=== PATIENT | male | born 1970 | race Caucasian/White ===

== ENCOUNTER 2021-05-11 07:25 | Emergency (ER) | payer OTHER ==
[2021-05-11] MEDS ORDERED: Fluorescein Opthalmic Strip ONE (07:36)
[2021-05-11] MEDS ORDERED: Tetracaine 0.5% PF 4 ML BOT ONE (07:36)
[2021-05-11] MEDS ORDERED: Morphine 4 MG/ML VIAL ONE (07:48)
[2021-05-11] MEDS ORDERED: Ondansetron PF 4 MG/2 ML Vial ONE (07:48)
[2021-05-11 08:04] LABS: #Monocytes 0.4 thou/uL (0.11-0.59); #Neutrophils 7.1 thou/uL (1.40-6.50); %Basophils 0.4 % (0.0-1.0); %Eosinophils 0.1 % (0.0-10.0); %Lymphocytes 11.8 % (21.0-51.0); %Monocytes 4.3 % (0.0-10.0); %Neutrophils 83.5 % (42.0-75.0); Hemoglobin 15.7 g/dL (14.0-18.0); Mean Corpuscular HGB CONC 33.4 g/dL (32.0-36.0); Mean Corpuscular Hemoglobin 30.7 pg (27.0-31.0); Mean Corpuscular Volume 91.8 fL (78.0-98.0); Mean Platelet Volume 5.8 fL (7.4-10.4); Platelet Count 367 thou/uL (130-400); RBC Distribution Width 11.4 % (11.5-14.5); Red Blood Cell (RBC) Count 5.12 mill/uL (4.70-6.10); White Blood Cell (WBC) Count 8.4 thou/uL (4.8-10.8)
[2021-05-11 08:16] LABS: ALT (SGPT) 10 U/L (8-55); AST (SGOT) 26 U/L (5-34); Albumin 4.8 g/dL (3.5-5.0); Alkaline Phosphatase 58 U/L (40-110); Anion Gap 14 mmol/L (10-20); BUN (Urea Nitrogen) 11 mg/dL (8.9-20.6); Bilirubin, Total 0.6 mg/dL (0.2-1.2); Calc. Creatinine Clearance 0 mL/min (70-130); Calcium 9.7 mg/dL (7.8-10.44); Carbon Dioxide 28 mmol/L (22-29); Chloride 97 mmol/L (98-107); Glucose 117 mg/dL (70-105); Potassium 4.3 mmol/L (3.5-5.1); Protein, Total 7.8 g/dL (6.0-8.3); Sodium 135 mmol/L (136-145)
[2021-05-11] MEDS ORDERED: Clindamycin/D5W 900 mg/50 ml Premix Bag ONE (08:48)
[2021-05-11] MEDS ORDERED: Clindamycin/D5W 600 mg/50 ml Premix Bag ONE (08:48)
[2021-05-11] MEDS ORDERED: Cefepime 2 GM VIAL ONE (08:48)
[2021-05-11] MEDS ORDERED: Sodium Chloride 0.9% 100 ML ONE (08:49)
[2021-05-11] MEDS ORDERED: Morphine 2 MG/ML VIAL ONE (08:51)
[2021-05-11] MEDS ORDERED: Ciprofloxacin 500 MG TAB ONE (10:27)
[2021-05-11] MEDS ORDERED: Iopamidol 370 76% 100 ML VIAL ONE (12:04)
== END 2021-05-11 10:49 | disposition home or self-care (01) ==
LOC: MADERS 07:25
DX: H44.002 Unspecified purulent endophthalmitis, left eye (principal); B96.89 Other specified bacterial agents as the cause of diseases classified elsewhere; F17.210 Nicotine dependence, cigarettes, uncomplicated
CPT/HCPCS: 70450; 70487; 80053; 83605; 85025; 87040; 96365; 96367; 96375; 96376; J0692; J2270; J2405; J3490; Q9967

== ENCOUNTER 2021-07-05 21:22 | Emergency (ER) | payer OTHER ==
[2021-07-05] MEDS ORDERED: Fluorescein Opthalmic Strip ONE (21:30)
[2021-07-05] MEDS ORDERED: Tetracaine 0.5% PF 4 ML BOT ONE (21:30)
[2021-07-05] MEDS ORDERED: Ciprofloxacin 500 MG TAB ONE (21:47)
[2021-07-05] MEDS ORDERED: Ondansetron ODT 4 MG TAB ONE (21:47)
[2021-07-05] MEDS ORDERED: Clindamycin 150 MG CAP ONE (21:47)
[2021-07-05] MEDS ORDERED: cefTRIAXone\\ROCEPHIN 1 GM VIAL ONE (21:47)
[2021-07-05] MEDS ORDERED: Ketorolac Tromethamine 30 MG/ML VIAL ONE (21:47)
[2021-07-05 21:58] LABS: #Basophils 0.1 thou/uL (0.0-0.2); #Eosinphils 0.1 thou/uL (0.0-0.7); #Lymphocytes 2.9 thou/uL (1.20-3.40); #Monocytes 0.7 thou/uL (0.11-0.59); #Neutrophils 4.9 thou/uL (1.40-6.50); %Basophils 0.9 % (0.0-1.0); %Eosinophils 1.3 % (0.0-10.0); %Lymphocytes 33.6 % (21.0-51.0); %Monocytes 7.5 % (0.0-10.0); %Neutrophils 56.7 % (42.0-75.0); Hemoglobin 13.1 g/dL (14.0-18.0); Mean Corpuscular HGB CONC 32.1 g/dL (32.0-36.0); Mean Corpuscular Hemoglobin 30.1 pg (27.0-31.0); Mean Corpuscular Volume 93.8 fL (78.0-98.0); Mean Platelet Volume 5.3 fL (7.4-10.4); Platelet Count 337 thou/uL (130-400); RBC Distribution Width 12.2 % (11.5-14.5); Red Blood Cell (RBC) Count 4.36 mill/uL (4.70-6.10); White Blood Cell (WBC) Count 8.7 thou/uL (4.8-10.8)
[2021-07-05 22:18] LABS: ALT (SGPT) Less than 7 U/L (8-55); AST (SGOT) 16 U/L (5-34); Alkaline Phosphatase 62 U/L (40-110); Anion Gap 14 mmol/L (10-20); BUN (Urea Nitrogen) 9 mg/dL (8.9-20.6); Bilirubin, Total Less than 0.2 mg/dL (0.2-1.2); Calc. Creatinine Clearance 0 mL/min (70-130); Calcium 8.9 mg/dL (7.8-10.44); Carbon Dioxide 29 mmol/L (22-29); Chloride 99 mmol/L (98-107); Globulin 2.5 g/dL (2.4-3.5); Glucose 92 mg/dL (70-105); Potassium 3.6 mmol/L (3.5-5.1); Protein, Total 6.5 g/dL (6.0-8.3); Sodium 138 mmol/L (136-145)
[2021-07-05] MEDS ORDERED: HYDROcodone/Acetaminophen 10/325 mg Tablet ONE (22:45)
== END 2021-07-05 23:50 | disposition home or self-care (01) ==
LOC: MADERS 21:22
DX: H44.002 Unspecified purulent endophthalmitis, left eye (principal); B96.89 Other specified bacterial agents as the cause of diseases classified elsewhere; F17.210 Nicotine dependence, cigarettes, uncomplicated
CPT/HCPCS: 36415; 80053; 85025; 96372; 99283; J0696; J1040; J1885; Q0162

== ENCOUNTER 2023-03-22 10:11 | Emergency (ER) | payer SELFPAY ==
[2023-03-22 10:46] LABS: #Basophils 0.1 thou/uL (0.0-0.2); #Eosinphils 0.3 thou/uL (0.0-0.7); #Lymphocytes 1.8 thou/uL (1.20-3.40); #Monocytes 0.6 thou/uL (0.11-0.59); #Neutrophils 4.2 thou/uL (1.40-6.50); %Basophils 0.9 % (0.0-1.0); %Eosinophils 3.7 % (0.0-10.0); %Lymphocytes 26.2 % (21.0-51.0); %Monocytes 8.1 % (0.0-10.0); %Neutrophils 61.3 % (42.0-75.0); Hemoglobin 14.3 g/dL (14.0-18.0); Mean Corpuscular HGB CONC 33.3 g/dL (32.0-36.0); Mean Corpuscular Hemoglobin 30.8 pg (27.0-31.0); Mean Corpuscular Volume 92.5 fl (78.0-98.0); Mean Platelet Volume 6.4 fL (7.4-10.4); Platelet Count 285 10x3/uL (130-400); RBC Distribution Width 13.3 % (11.5-14.5); Red Blood Cell (RBC) Count 4.65 mill/uL (4.70-6.10); White Blood Cell (WBC) Count 6.9 10x3/uL (4.8-10.8)
[2023-03-22 11:03] LABS: ALT (SGPT) Less than 7 U/L (8-55); AST (SGOT) 15 U/L (5-34); Alkaline Phosphatase 57 U/L (40-110); Anion Gap 14 mmol/L (10-20); BUN (Urea Nitrogen) 7 mg/dL (8.9-20.6); Bilirubin, Total 0.4 mg/dL (0.2-1.2); Calc. Creatinine Clearance 0 mL/min (70-130); Carbon Dioxide 25 mmol/L (22-29); Chloride 100 mmol/L (98-107); Estimated GFR 105; Globulin 2.6 g/dL (2.4-3.5); Glucose 99 mg/dL (70-105); Magnesium 1.8 mg/dL (1.6-2.6); Protein, Total 6.6 g/dL (6.0-8.3); Sodium 135 mmol/L (136-145)
[2023-03-22 11:05] LABS: Troponin I Less than 0.010 ng/mL (< 0.028)
[2023-03-22] MEDS ORDERED: Metoclopramide HCl 10 MG/2 ML VIAL ONE (11:11)
[2023-03-22] MEDS ORDERED: diphenhydrAMINE 50 MG/ML VIAL ONE (11:11)
== END 2023-03-22 13:01 | disposition home or self-care (01) ==
LOC: MADERS 10:11
DX: R03.0 Elevated blood-pressure reading, without diagnosis of hypertension (principal); R51.9 Headache, unspecified; F17.210 Nicotine dependence, cigarettes, uncomplicated
CPT/HCPCS: 70450; 80053; 83735; 84484; 85025; 93005; 94760; 96374; 96375; J1200; J2765

== ENCOUNTER 2023-03-24 10:38 | Emergency (ER) | payer SELFPAY | END 2023-03-24 11:20 | disposition left against medical advice (07) | LOC: MADERS 10:38 | DX: R03.0 Elevated blood-pressure reading, without diagnosis of hypertension (principal); F17.210 Nicotine dependence, cigarettes, uncomplicated | CPT/HCPCS: 94760 ==